=== PATIENT | male | born 1945 | race Hispanic/Latino ===

== ENCOUNTER → 2017-04-01 | Outpatient (CLI) | payer MEDICARE ==
--- NOTE | 2017-04-01 17:14 | Diagnostic Imaging Report ---
PROCEDURE: Frontal and lateral views of the chest. COMPARISON: Report of a CT of the chest performed 05/31/2010 INDICATIONS: CHRONIC OBSTRUCTIVE PULMONARY DISEASE FINDINGS: Lines/tubes: None. Lungs: Mild hyperinflation. No mass or infiltrate. Pulmonary vascular markings are normal. Pleura: There is no pleural effusion or pneumothorax. Heart and mediastinum: The heart and the mediastinum are normal. Bones: Sclerotic, well-defined lesion in the right eighth rib measures 4 mm and is likely a bone island. There are mild degenerative changes of the midthoracic spine. IMPRESSION: Mild pulmonary hyperinflation suggestive of COPD. No acute cardiopulmonary process. Dictated by: Cynthia Alanis M.D. on 04/01/2017 at 17:13 Electronically approved by: Cynthia Alanis M.D. on 04/01/2017 at 17:13
== END ==
LOC: RAD 14:57
PROVIDERS: ATTEND Specialist
DX: J44.9 Chronic obstructive pulmonary disease, unspecified (principal)
CPT/HCPCS: 71046

== ENCOUNTER → 2018-12-02 | Day surgery (SDC) | payer MEDICARE ==
[2018-11-29 11:17] LABS: BASOPHILS % 0.3 % (0.0-1.0); EOSINOPHILS # (AUTO) 0.2 (0.0-0.4); EOSINOPHILS % 1.7 % (0.0-6.0); HEMATOCRIT 34.5 % (38.2-49.6); HEMOGLOBIN 10.3 g/dL (14.0-18.0); LYMPHOCYTES # (AUTO) 1.7 (1.0-3.2); LYMPHOCYTES % 14.4 % (18.0-39.1); MEAN CORPUSCULAR HEMOGLOBIN 23.2 pg (28-32); MEAN CORPUSCULAR HGB CONC 29.9 g/dL (31-35); MEAN CORPUSCULAR VOLUME 77.7 fL (81-99); MONOCYTES # (AUTO) 0.7 (0.2-0.8); MONOCYTES % 5.5 % (4.4-11.3); NEUTROPHILS # (AUTO) 9.3 (2.1-6.9); NEUTROPHILS % 77.6 % (38.7-80.0); PLATELET COUNT 197 x10e3/uL (140-360); RED BLOOD COUNT 4.44 x10e6/uL (4.3-5.7); RED CELL DISTRIBUTION WIDTH 18.1 % (11.7-14.4)
[2018-11-29 11:40] LABS: ANION GAP 14.5 mmol/L (8-16); BLOOD UREA NITROGEN 11 mg/dL (7-26); BUN/CREATININE RATIO 12 (6-25); CALCIUM 9.7 mg/dL (8.4-10.2); CARBON DIOXIDE 24 mmol/L (22-29); CHLORIDE 107 mmol/L (98-107); EST GLOMERULAR FILTRATION RATE > 60 ML/MIN (60-); GLUCOSE 122 mg/dL (74-118); POTASSIUM 4.5 mmol/L (3.5-5.1); SODIUM 141 mmol/L (136-145)
--- NOTE | 2018-11-29 12:20 | Diagnostic Imaging Report ---
EXAMINATION: CHEST 2 VIEWS INDICATION: Pre-operative COMPARISON: None FINDINGS: LINES/TUBES:None LUNGS:The lungs are well-inflated. No focal consolidation or pulmonary edema. PLEURA:No pleural effusion or pneumothorax. MEDIASTINUM:The cardiomediastinal silhouette appears normal in size and shape. Atherosclerotic calcifications of the thoracic aorta. BONES/SOFT TISSUES:No acute osseous injury. ABDOMEN:No free air under the diaphragm. IMPRESSION: No focal pneumonia or pulmonary edema. Signed by: Trever Combs MD on 11/29/2018 12:17 PM
[~2018-12-02] MED LIST: ATENOLOL50 MG; BUPIVACAINE 0.25% 30ML SDV INJ ONE; CEFTRIAXONE SOD 1 GM/NS 50 ML 50 ML IV ONE; DEXAMETHASONE SOD PHOS INJ 4 MG/ML VIAL ONE; FENTANYL CITRATE/PF 100MCG/2 ML INJ ONE; LIDOCAINE HCL 2% LOCAL INJ 5 ML SDV VIAL INJ ONE; LISINOPRIL10 MG PO; ONDANSETRON HCL INJ 2MG/ML 2ML 2 MG/ML VIAL ONE; PROPOFOL IV EMULSION 10 MG/ML 20 ML VIAL ONE; SEVOFLURANE INHAL SOLN 250 ML PEN BTL ONE
--- OUTSIDE RECORDS SUMMARY | 2018-12-02 08:14 | XMS REPORT ---
Author Author [facility] Address Unknown Phone Unavailable Care Team Providers Care Supervisor [employer] Name Role Phone Dale FUENTES Unavailable Unavailable WILLIAM LOPEZ Unavailable Unavailable Problems This patient has no known problems. Allergies, Adverse Reactions, Alerts This patient has no known allergies or adverse reactions. Medications This patient has no known medications. Results Test Description Test Time Test Comments Text Results Atomic Results Result Comments CHEST 2 VIEWS 2018-11-29 12:16:00 [place] [address] Patient Name: JORJE CORDERO MR #: [id number] : 1945 Age/Sex: 72/M Req #: [id number] Adm Physician: Ordered by: LYNN FUENTES MD Report #: [id number] Location: OR Room/Bed: Procedure: [id number] DX/CHEST 2 VIEWS Exam Date: Exam Time: REPORT STATUS: Signed EXAMINATION: CHEST 2 VIEWS INDICATION: Pre-operative COMPARISON: None FINDINGS: LINES/TUBES:None LUNGS:The lungs are well- inflated. No focal consolidation or pulmonary edema. PLEURA:No pleural effusion or pneumothorax. MEDIASTINUM:The cardiomediastinal silhouette appears normal in size and shape. Atherosclerotic calcifications of the thoracic aorta. BONES/SOFT TISSUES:No acute osseous injury. ABDOMEN:No free air under the diaphragm. IMPRESSION: No focal pneumonia or pulmonary edema. Signed by: Clay Beltran MD on 11/29/2018 12:17 PM Dictated By: CLAY BELTRAN MD 16 Transcribed By: ALYCE on 11/29/181216 COPY TO: LYNN FUENTES MD CHEST 2 VIEWS [place] [address] Patient Name: JORJE CORDERO MR #: [id number] : 1945 Age/Sex: 71/M Req #: [id number] Adm Physician: Ordered by: WILLIAM LOPEZ MD Report #: [id number] Location: [facility] Room/Bed: Procedure: [id number] DX/CHEST 2 VIEWS Exam Date: 04/01/17 Exam Time: 1520 REPORT STATUS: Signed PROCEDURE: Frontal and lateral views of the chest. COMPARISON: Report of a CT of the chest performed 05/31/2010 INDICATIONS: CHRONIC OBSTRUCTIVE PULMONARY DISEASE FINDINGS: Lines/tubes: None. Lungs: Mild hyperinflation. No mass or infiltrate. Pulmonary vascular markings are normal. Pleura: There is no pleural effusion or pneumothorax. Heart and mediastinum: The heart and the mediastinum are normal. Bones: Sclerotic, well-defined lesion in the right eighth rib measures 4 mm and is likely a bone island. There are mild degenerative changes of the midthoracic spine. IMPRESSION: Mild pulmonary hyperinflation suggestive of COPD. No acute cardiopulmonary process. Dictated by: Ed Alanis M.D. on 04/01/2017 at 17:13 Electronically approved by: Ed Alanis M.D. on 04/01/2017 at 17:13 Dictated By: ED ALANIS MD [id number] Transcribed By: JUAN on 04/01/171712 COPY TO: WILLIAM LOPEZ MD
[2018-12-02 11:45] VITALS: BP 161/93
--- NOTE | 2018-12-16 16:52 | Operative Report ---
DATE OF PROCEDURE: 12/02/2018 SURGEON: Fernando Jaime MD PREOPERATIVE DIAGNOSIS: Penile lesion. POSTOPERATIVE DIAGNOSIS: Penile lesion. OPERATIVE PROCEDURE PERFORMED: 1. Penile biopsy. 2. Cystoscopy. ANESTHESIA: General. ESTIMATED BLOOD LOSS: Minimal. INDICATIONS: Mr. Jacoby Cornejo is a 72-year-old gentleman who reports of penile lesion, which has been persistent on glans and has not changed with multiple creams. He now presents for biopsy of this lesion. PROCEDURE IN DETAIL: The patient was brought into the operating room, placed in supine position. After administration of general anesthesia, he was prepped and draped in the usual fashion. Flexible cystoscopy was performed. The anterior and posterior urethra were noted to be normal. The prostate revealed evidence of lateral lobe hyperplasia and mild elevation of the median bar. Bladder was entered without difficulty. Upon entrance into the bladder, the ureteral orifices were normal position and produce clear efflux. There were no mucosal lesions identified. There was grade 1-2 trabeculations noted. There were no mucosal lesions identified with ileal mucosa. The cystoscope and sheath were removed. A punch biopsy was taken of the papular lesion on the glans and then a 2nd large parallel biopsies were taken from the same location. Both these sites were fulgurated using the electrocautery device. A stitch was placed at the point of the punch biopsy with chromic. There was minimal bleeding noted at the completion of the procedure. Anesthesia was then reversed and the patient was transferred to a bed and taken to the postanesthesia care unit in good condition. Of note, the needle and instrument count were correct at the conclusion of the case. Fernando Jaime MD HLW/MODL /[id number] TIES[facility]
== END | disposition home or self-care (01) ==
LOC: OR 08:12
PROVIDERS: ATTEND Urology
DX: C60.9 Malignant neoplasm of penis, unspecified (principal); R32 Unspecified urinary incontinence; N32.89 Other specified disorders of bladder; Z88.6 Allergy status to analgesic agent; Z01.810 Encounter for preprocedural cardiovascular examination; Z01.812 Encounter for preprocedural laboratory examination; Z01.818 Encounter for other preprocedural examination; Z79.84 Long term (current) use of oral hypoglycemic drugs; Z68.34 Body mass index [BMI] 34.0-34.9, adult
CPT/HCPCS: 36415 ×2; 52000; 54100; 71046; 80048; 82948; 85025; 88305; 88342; 93005; J0696; J1100; J2001; J2405; J2704; J3010

== ENCOUNTER → 2021-01-10 | Day surgery (SDC) | payer OTHER ==
[2021-01-08 09:12] LABS: BASOPHILS # (AUTO) 0.1 (0.0-0.1); BASOPHILS % 0.8 % (0.0-1.0); EOSINOPHILS # (AUTO) 0.1 (0.0-0.4); EOSINOPHILS % 2.4 % (0.0-6.0); HEMATOCRIT 34.7 % (38.2-49.6); HEMOGLOBIN 9.6 g/dL (14.0-18.0); LYMPHOCYTES # (AUTO) 1.3 (1.0-3.2); MEAN CORPUSCULAR HEMOGLOBIN 20.8 pg (28-32); MEAN CORPUSCULAR HGB CONC 27.7 g/dL (31-35); MEAN CORPUSCULAR VOLUME 75.3 fL (81-99); MONOCYTES # (AUTO) 0.4 (0.2-0.8); MONOCYTES % 6.3 % (4.4-11.3); NEUTROPHILS # (AUTO) 4.1 (2.1-6.9); NEUTROPHILS % 68.3 % (38.7-80.0); PLATELET COUNT 275 x10e3/uL (140-360); RED BLOOD COUNT 4.61 x10e6/uL (4.3-5.7); RED CELL DISTRIBUTION WIDTH 18.2 % (11.7-14.4)
[2021-01-08 09:49] LABS: ANION GAP 12.4 mmol/L (8-16); CALCIUM 8.4 mg/dL (8.4-10.2); CREATININE, SERUM 0.81 mg/dL (0.72-1.25); POTASSIUM 3.4 mmol/L (3.5-5.1)
[~2021-01-10] MED LIST changes: +ADVIL PM CAPLE1 EACH PO; +ASPIRIN81 MG PO; +ATENOLOL50 MG PO; +BACITRACIN ZINC 15 GM OINT ONE; -BUPIVACAINE 0.25% 30ML SDV INJ ONE; +BUPIVACAINE HCL 0.5% INJ 30 ML VIAL INJ ONE; +CEFTRIAXONE 1 GM VIAL ONE; -CEFTRIAXONE SOD 1 GM/NS 50 ML 50 ML IV ONE; +CETIRIZINE HCL10 MG PO; +DEXAMETHASONE SOD PHOS INJ 4 MG/ML SDV ONE; -DEXAMETHASONE SOD PHOS INJ 4 MG/ML VIAL ONE; +EPHEDRINE SULFATE INJ 50 MG/ML VIAL ONE; +JARDIANCE25 MG PO; +MELATONIN3 MG PO; +NIFEDIPINE ER30 M1 PO; +OMEPRAZOLE40 MG PO; +PIOGLITAZONE HC45 MG PO; +POVIDONE IODINE 0.05% 0.05 % ML PO ONE; +SIMVASTATIN40 MG PO; +SODIUM CHLORIDE 0.9% 50ML 50 ML ONE; +TESTOSTERONE IJ; +ZYRTEC10 M3 PO
[2021-01-10 08:33] VITALS: BP 118/66
== END | disposition home or self-care (01) ==
LOC: OR 05:27
PROVIDERS: ATTEND Urology
DX: C60.9 Malignant neoplasm of penis, unspecified (principal); I45.10 Unspecified right bundle-branch block; I10 Essential (primary) hypertension; E78.5 Hyperlipidemia, unspecified; E11.9 Type 2 diabetes mellitus without complications; K21.9 Gastro-esophageal reflux disease without esophagitis; Z88.6 Allergy status to analgesic agent; Z79.82 Long term (current) use of aspirin; Z79.84 Long term (current) use of oral hypoglycemic drugs; Z79.899 Other long term (current) drug therapy
CPT/HCPCS: 36415 ×2; 54120; 80048; 82948; 85025; 88309; J0696; J1100; J2001; J2405; J2704; J3010